=== PATIENT | male | born 1955 | race Caucasian/White ===

== ENCOUNTER 2018-03-08 12:00 | Inpatient (IN) | payer OTHER ==
[~2018-03-08] VITALS: Ht 167.6 cm; Wt 69.4 kg
[2018-03-08] MEDS ORDERED: SIMVASTATIN10 MG PO (13:38)
[2018-03-08] MEDS ORDERED: ZETIA10 MG PO (13:39)
[2018-03-08] MEDS ORDERED: ENALAPRIL MALEA20 MG PO (13:39)
[2018-03-08] MEDS ORDERED: PLAVIX75 MG PO (13:39)
[2018-03-08] MEDS ORDERED: ASA81 MG PO (13:39)
[2018-03-08] MEDS ORDERED: TOPROL XL25 M1 PO (13:40)
[2018-03-15] MEDS ORDERED: DOCUSATE SODIU100 MG PO (09:20)
[2018-03-15] MEDS ORDERED: GABAPENTIN800 MG PO (09:20)
[2018-03-15] MEDS ORDERED: CLONAZEPAM1 MG PO (09:21)
[2018-03-15] MEDS ORDERED: AMOX-CLAV 875-1 EACH PO (09:21)
[2018-03-15] MEDS ORDERED: PERCOCET 5-3251 EACH PO (09:21)
== END 2018-03-15 16:20 | DRG 460 ==
LOC: PED 03-14 04:45 → O/R 03-14 04:45 → SURH 03-14 12:00 → PED 03-14 17:58
PROVIDERS: Orthopaedic Surgery Orthopaedic Surgery of the Spine
PROC: 0SG10AJ Fusion of 2 or more Lumbar Vertebral Joints with Interbody Fusion Device, Posterior Approach, Anterior Column, Open Approach (ICD-10-PCS; 2018-03-14)
PROC: 07DS3ZZ Extraction of Vertebral Bone Marrow, Percutaneous Approach (ICD-10-PCS; 2018-03-14)
PROC: 0ST20ZZ Resection of Lumbar Vertebral Disc, Open Approach (ICD-10-PCS; 2018-03-14)
PROC: 0SG10A0 Fusion of 2 or more Lumbar Vertebral Joints with Interbody Fusion Device, Anterior Approach, Anterior Column, Open Approach (ICD-10-PCS; principal; 2018-03-14 12:00)
DX: M47.26 Other spondylosis with radiculopathy, lumbar region (principal); M48.061 Spinal stenosis, lumbar region without neurogenic claudication; M51.16 Intervertebral disc disorders with radiculopathy, lumbar region; I10 Essential (primary) hypertension; B19.20 Unspecified viral hepatitis C without hepatic coma